=== PATIENT | female | born 1985 | race Caucasian/White ===

== ENCOUNTER → 2017-06-13 | Outpatient (CLI) | payer OTHER ==
[~2017-06-13] MED LIST: BCPILLS PO; BUPR1SUB23 SL; CHOL100027 PO; CLON1TAB3 PO; MULTTAB58 PO; PRLSR20 PO
[2017-06-13 17:44] LABS: HEMATOCRIT 39.4 % (37-47); HEMOGLOBIN 13.2 g/dL (12.0-16.0); MEAN CELL VOLUME 92.7 fL (80-100); MEAN CORPUSCULAR HEMOGLOBIN 31.1 pg (25-34); MEAN CORPUSCULAR HGB CONC 33.5 g/dl (32-36); MEAN PLATELET VOLUME 10.3 fL (7.4-10.4); PLATELET COUNT 273 K/uL (130-400); RED CELL DISTRIBUTION WIDTH CV 12.9 % (11.5-14.5); RED CELL DISTRIBUTION WIDTH SD 43.5 fL (36.4-46.3); WHITE BLOOD COUNT 8.89 K/uL (4.8-10.8)
[2017-06-13 17:56] LABS: ALBUMIN 4.1 gm/dl (3.4-5.0); ALT/SGPT 47 U/L (12-78); BLOOD UREA NITROGEN 8 mg/dl (7-18); CARBON DIOXIDE 26 mmol/L (21-32); CREATININE 0.64 mg/dl (0.60-1.20); GLUCOSE 119 mg/dl (70-99); POTASSIUM 3.6 mmol/L (3.5-5.1); SODIUM 136 mmol/L (136-145)
[2017-06-13 18:07] LABS: ALKALINE PHOSPHATASE 39 U/L (45-117); AST/SGOT 28 U/L (15-37); TOTAL PROTEIN 7.8 gm/dl (6.4-8.2)
[2017-06-15 13:10] LABS: ANA SCREEN TC 249X NEGATIVE (NEGATIVE)
== END | disposition home or self-care (01) ==
LOC: C.LABBFT 13:48
PROVIDERS: ATTEND Physician Assistant Medical
DX: H60.91 Unspecified otitis externa, right ear (principal); R20.2 Paresthesia of skin

== ENCOUNTER → 2017-06-22 | Outpatient (CLI) | payer OTHER | END | disposition home or self-care (01) | LOC: C.PAPS 18:35 | PROVIDERS: ATTEND Obstetrics & Gynecology | DX: Z01.419 Encounter for gynecological examination (general) (routine) without abnormal findings (principal) ==

== ENCOUNTER → 2017-08-03 | Outpatient (CLI) | payer OTHER ==
--- NOTE | 2017-08-03 16:23 | DIAGNOSTIC IMAGING REPORT ---
L-SPINE MIN 4 VIEWS ROUTINE CLINICAL HISTORY: PARESTHESIAS COMPARISON: Lumbar spine MRI June 08, 2016 and lumbar spine radiographs March 15, 2015. FINDINGS: Incidental note is made of cholecystectomy clips. Alignment of the lumbar spine is anatomic. No fracture or suspicious lesion is present. There is mild disc space narrowing and osteophytosis at L5-S1. Otherwise, disc spaces are preserved. IMPRESSION: 1. No lumbar spine fracture or subluxation. 2. Mild disc space narrowing and osteophytosis at L5-S1. Electronically signed by: Pete Blas M.D. 08/03/2017 4:21 PM Dictated Date/Time: 08/03/2017 4:20 PM
== END | disposition home or self-care (01) ==
LOC: C.RAD 15:55
PROVIDERS: ATTEND Physician Assistant Medical
DX: R20.2 Paresthesia of skin (principal)